=== PATIENT | female | born 1990 | race Caucasian/White ===

== ENCOUNTER 2020-11-27 16:44 | Emergency (ER) | payer MEDICAID ==
[2020-11-27] MEDS ORDERED: KETOROLAC TROMETHAMINE INJ/PF 30 MG/1 ML SDV IV ONE (17:21)
[2020-11-27] MEDS ORDERED: ONDANSETRON HCL INJ/PF 4 MG/2 ML SDV IV ONE (17:21)
--- NOTE | 2020-11-27 17:23 | ER Document Report ---
ED Medical Screen (RME) - General Chief Complaint: Nausea/Vomiting/Diarrhea Stated Complaint: NAUSEA,VOMITING,DIARRHEA Time Seen by Provider: 11/27/20 17:11 Mode of Arrival: Ambulatory Information source: Patient Notes: 30-year-old female patient presented to the emergency department chief complaint of nausea, vomiting and diarrhea. Patient reports symptoms ongoing for the last 2 days. She states she was passing blood in her stool today. Denies any history of similar episodes. Patient alert, oriented, no acute distress noted, abdomen soft, nontender. I have greeted and performed a rapid initial assessment of this patient. A comprehensive ED assessment and evaluation of the patient, analysis of test results and completion of the medical decision making process will be conducted by additional ED providers. I have specifically instructed the patient or family members with the patient to immediately return to any nursing staff should anything change in the patient's condition or with their chief complaint. - Related Data Allergies/Adverse Reactions: Penicillins Allergy (Verified 11/27/20 17:03) Physical Exam - Vital signs Vitals: Temp Pulse Resp BP Pulse Ox 98.1 F 78 22 H 146/88 H 93 11/27/20 16:50 11/27/20 16:50 11/27/20 16:50 11/27/20 16:50 11/27/20 16:50 Course - Vital Signs Vital signs: Temp Pulse Resp BP Pulse Ox 98.1 F 78 22 H 146/88 H 93 11/27/20 16:50 11/27/20 16:50 11/27/20 16:50 11/27/20 16:50 11/27/20 16:50 - Laboratory Results Result Diagrams: 11/27/20 17:15 11/27/20 17:15
[2020-11-27 17:51] LABS: ABSOLUTE BASOPHILS # (AUTO) 0.1 10^3/uL (0.0-0.2); ABSOLUTE EOSINOPHILS # (AUTO) 0.2 10^3/uL (0.0-0.6); ABSOLUTE LYMPHOCYTES (AUTO) 2.9 10^3/uL (0.5-4.7); ABSOLUTE MONOCYTES (AUTO) 0.5 10^3/uL (0.1-1.4); ABSOLUTE NEUT (AUTO) 4.8 10^3/uL (1.7-8.2); BASOPHILS % (AUTO) 0.6 % (0-2); EOSINOPHILS % (AUTO) 2.8 % (0-6); HEMATOCRIT 44.4 % (36.0-47.0); HEMOGLOBIN 15.1 g/dL (12.0-15.5); LYMPHOCYTES % (AUTO) 34.2 % (13-45); MEAN CORPUSCULAR HEMOGLOBIN 30.4 pg (27.0-33.4); MEAN CORPUSCULAR VOLUME 90 fl (80-97); MONOCYTES % (AUTO) 5.7 % (3-13); PLATELET COUNT 245 10^3/uL (150-450); RED BLOOD COUNT 4.96 10^6/uL (3.72-5.28); RED CELL DISTRIBUTION WIDTH 12.7 % (11.5-14.0); SEGMENTED NEUTROPHILS % (AUTO) 56.7 % (42-78); TOTAL CELLS COUNTED % (AUTO) 100 %; WHITE BLOOD COUNT 8.6 10^3/uL (4.0-10.5)
[2020-11-27 17:55] LABS: APPEARANCE,URINE CLEAR; BILIRUBIN,URINE NEGATIVE (NEGATIVE); COLOR,URINE YELLOW; GLUCOSE, URINE NEGATIVE (NEGATIVE); KETONES,URINE NEGATIVE (NEGATIVE); LEUKOCYTE ESTERASE,URINE NEGATIVE (NEGATIVE); NITRITE,URINE NEGATIVE (NEGATIVE); PROTEIN,URINE NEGATIVE (NEGATIVE); URINE SPECIFIC GRAVITY 1.018; UROBILINOGEN,URINE NEGATIVE mg/dL (<2.0)
[2020-11-27 18:11] LABS: ALBUMIN 3.9 g/dL (3.5-5.0); ALKALINE PHOSPHATASE 63 U/L (38-126); ANION GAP 7 (5-19); ASPARTATE AMINO TRANSFERASE 23 U/L (14-36); BILIRUBIN,DIRECT 0.1 mg/dL (0.0-0.4); BILIRUBIN,TOTAL 0.7 mg/dL (0.2-1.3); BLOOD UREA NITROGEN 9 mg/dL (7-20); CARBON DIOXIDE 28 mmol/L (22-30); CHLORIDE 103 mmol/L (98-107); GLUCOSE 87 mg/dL (75-110); POTASSIUM 4.4 mmol/L (3.6-5.0); TOTAL PROTEIN 6.8 g/dL (6.3-8.2)
[2020-11-27] MEDS ORDERED: KETOROLAC TROMETHAMINE INJ/PF 30 MG/1 ML SDV ONE (20:30)
[2020-11-27] MEDS ORDERED: ONDANSETRON HCL INJ/PF 4 MG/2 ML SDV ONE (20:30)
--- NOTE | 2020-11-27 20:36 | ER Document Report ---
ED GI Bleed / Rectal Pain - General Chief Complaint: Rectal Bleeding Stated Complaint: NAUSEA,VOMITING,DIARRHEA Time Seen by Provider: 11/27/20 17:11 Mode of Arrival: Ambulatory Information source: Patient Notes: 11/27/20 17:04 - Nursing Note by HOLLEY PEREZ [facility] Num: [id number] : 1990 Patient Age: 30 Pt ambulated to triage room without difficulty. Pt sitting up to chair, Resp even & unlabored. Pt able to speak in complete sentences. Pt reports nausea, vomiting & diarrhea x 2 days. Pt reports vomiting x 2 today. Pt also reports dark red rectal bleeding that started today. JEFFERY Lara present for triage. Initialized on 11/27/20 17:04 - END OF NOTE ED Medical Screen (morena gonsalez) - General Chief Complaint: Nausea/Vomiting/Diarrhea Stated Complaint: NAUSEA,VOMITING,DIARRHEA Time Seen by Provider: 11/27/20 17:11 Mode of Arrival: Ambulatory Information source: Patient Notes: 30-year-old female patient presented to the emergency department chief complaint of nausea, vomiting and diarrhea. Patient reports symptoms ongoing for the last 2 days. She states she was passing blood in her stool today. Denies any history of similar episodes. Patient alert, oriented, no acute distress noted, abdomen soft, nontender. MY NOTES 30-year-old female arrives with chief complaint of vomiting x2 today and red rectal bleeding. Patient reports she has had nausea for the last 2 days and only ate small amounts the prior day. 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 We will write her off work for least 5 days. Rectal exam was performed with Isabelle ROBLES. Patient denies any other person in the family with rectal bleeding or PUD. Patient denies any rectal sex or any diverticulitis or eating any popcorn or vitamin C or aspirin. TRAVEL OUTSIDE OF THE [place] IN LAST 30 DAYS: No - HPI Patient complains to provider of: Dark red bld from rectum. No: Coffee ground emesis, Dark/tarry stools, Hemorrhoids, Rectal pain, Vomiting blood Timing/Duration: Sudden, Better Quality of pain: Achy Severity of symptoms: Mild Pain Level: 1 Rectal bleeding: Bleeding w/o stool Dark Stools: No: Maroon, Black, Tarry Rectal foreign body: No Rectal pain with intercourse: No - Related Data Allergies/Adverse Reactions: Penicillins Allergy (Verified 11/27/20 17:03) Past Medical History - General Information source: Patient - Social History Smoking Status: Former Smoker Cigarette use (# per day): No Chew tobacco use (# tins/day): No Smoking Education Provided: No Frequency of alcohol use: None Drug Abuse: None Lives with: Family Family History: Reviewed & Not Pertinent Patient has suicidal ideation: No Patient has homicidal ideation: No Review of Systems - Review of Systems Constitutional: No symptoms reported EENT: No symptoms reported Cardiovascular: No symptoms reported Respiratory: No symptoms reported Gastrointestinal: See HPI, Rectal bleeding Genitourinary: No symptoms reported Female Genitourinary: No symptoms reported Musculoskeletal: No symptoms reported Skin: No symptoms reported Hematologic/Lymphatic: No symptoms reported Neurological/Psychological: No symptoms reported Physical Exam - Vital signs Vitals: Temp Pulse Resp BP Pulse Ox 98.1 F 78 22 H 146/88 H 93 11/27/20 16:50 11/27/20 16:50 11/27/20 16:50 11/27/20 16:50 11/27/20 16:50 Interpretation: Normal - General General appearance: Appears well, Alert, Other - Morbidly obese - HEENT Head: Normocephalic, Atraumatic Eyes: Normal Pupils: PERRL - Respiratory Respiratory status: No respiratory distress Chest status: Nontender Breath sounds: Normal Chest palpation: Normal - Cardiovascular Rhythm: Regular Heart sounds: Normal auscultation Murmur: No - Abdominal Inspection: Normal Distension: No distension Bowel sounds: Normal Tenderness: Nontender Organomegaly: No organomegaly - Rectal Tenderness: No Stool: Heme negative, Other - 9:00 hemorrhoidal tag old noninflamed - Genitourinary External exam: Normal - examined with Isabelle ROBLES - Back Back: Normal, Nontender - Extremities General upper extremity: Normal inspection, Nontender, Normal color, Normal ROM, Normal temperature General lower extremity: Normal inspection, Nontender, Normal color, Normal ROM, Normal temperature, Normal weight bearing. No: Kailey's sign - Neurological Neuro grossly intact: Yes Cognition: Normal Orientation: AAOx4 Nelsy Coma Scale Eye Opening: Spontaneous Nelsy Coma Scale Verbal: Oriented Buckley Coma Scale Motor: Obeys Commands Nelsy Coma Scale Total: 15 Speech: Normal Motor strength normal: LUE, RUE, LLE, RLE Sensory: Normal - Psychological Associated symptoms: Normal affect, Normal mood - Skin Skin Temperature: Warm Skin Moisture: Dry Skin Color: Normal Course - Vital Signs Vital signs: Temp Pulse Resp BP Pulse Ox 97.9 F 58 L 16 144/68 H 100 11/27/20 22:32 11/27/20 22:32 11/27/20 22:32 11/27/20 22:32 11/27/20 22:32 - Laboratory Results Result Diagrams: 11/27/20 17:15 11/27/20 17:15 Critical Laboratory Results Reviewed: Yes Attending or Supervising Physician who Reviewed Labs: LUIS LI JR - Radiology Results Critical Radiology Results Reviewed: Yes Attending or Supervising Physician who Reviewed Radiology: LUIS LI JR Discharge - Discharge Clinical Impression: Rectal bleeding Condition: Stable Disposition: HOME, SELF-CARE Additional Instructions: Off work as directed take medicines as directed. Return to ER as needed encourage fluids Prescriptions: Sucralfate [Carafate 1 gm Tablet] 1 gm PO ACHS #60 tablet Famotidine [Pepcid 20 mg Tablet] 20 mg PO BID #12 tablet Forms: Return to Work
--- NOTE | 2020-11-27 22:37 | RADIOLOGY REPORT (SQ) ---
EXAM DESCRIPTION: X-RAY CHEST- ONE VIEW AND ABDOMEN/ PELVIS - 4 VIEWS CLINICAL HISTORY: Rectal bleeding COMPARISON: None available. TECHNIQUE: One view of the chest and the views of the abdomen and pelvis. FINDINGS: There are no discrete air space infiltrates, pneumothoraces or pleural effusions. The pulmonary vascularity is normal. The cardiomediastinal contour is unremarkable for patient's age and sex. There is no evidence of free air under the hemidiaphragms. Surgical clips in the right upper abdominal quadrant are most consistent with prior cholecystectomy. The bowel gas pattern is nonspecific. No significant stool burden is identified. The osseous structures appear grossly intact. Prominent appearance of the gluteal musculature on pelvic view is nonspecific in nature. Please note, radiographs poorly evaluate soft tissue other soft tissue abnormalities such as presence of subcutaneous gas. IMPRESSION: 1. No free air under the hemidiaphragms. 2. Nonspecific bowel gas pattern. Consider CT as a more detailed evaluation if clinically appropriate.
[2020-11-27 22:43] VITALS: BP 144/68
== END 2020-11-27 22:40 | disposition home or self-care (01) ==
LOC: ER 16:44
DX: K64.4 Residual hemorrhoidal skin tags (principal); R11.2 Nausea with vomiting, unspecified; R19.7 Diarrhea, unspecified; E66.01 Morbid (severe) obesity due to excess calories; Z87.891 Personal history of nicotine dependence; Z88.0 Allergy status to penicillin
CPT/HCPCS: 99284; 96374; 96375; 86900; 86901; 36415; 86850; 83690; 85025; 81025; 80053; 81001; 74022; J1885; J2405